=== PATIENT | male | born 1975 | race Caucasian/White ===

== ENCOUNTER 2021-03-24 17:32 | Inpatient (IN) | payer OTHER ==
[~2021-03-24] VITALS: Ht 182.9 cm; Wt 97.7 kg
[2021-03-24 17:32] VITALS: BP 115/79
[~2021-03-24 17:32] MED LIST: HYDROCODONE-ACE15 ML PO; NOHOMEMEDICATIONS
[2021-03-24 18:20] LABS: HEMATOCRIT 31.2 % (42.0-52.0); HEMOGLOBIN 10.5 gm/dL (14.0-18.0); MCH 29.5 pg (26.0-34.0); MCHC 33.7 g/dL (28.0-37.0); MCV 87.3 fL (80.0-100.0); RBC 3.57 mil/uL (4.50-6.00); RDW 14.9 % (10.5-14.5); WBC 14.1 thou/uL (4.0-11.0)
[2021-03-24 18:23] LABS: CREATININE 1.4 mg/dL (0.7-1.3); POTASSIUM 3.6 mmol/L (3.5-5.1)
[2021-03-24 18:30] LABS: TOTAL BILIRUBIN 0.4 mg/dL (0.2-1.0); TOTAL PROTEIN 6.3 g/dL (6.4-8.2)
[2021-03-24 22:17] VITALS: BP 118/83
[2021-03-24 23:20] VITALS: BP 110/77
[2021-03-25 05:43] LABS: HEMATOCRIT 32.8 % (42.0-52.0); HEMOGLOBIN 10.9 gm/dL (14.0-18.0); MCH 29.3 pg (26.0-34.0); MCHC 33.2 g/dL (28.0-37.0); MCV 88.1 fL (80.0-100.0); RBC 3.72 mil/uL (4.50-6.00); RDW 15.1 % (10.5-14.5); WBC 12.7 thou/uL (4.0-11.0)
[2021-03-25 05:53] LABS: CALCIUM 7.9 mg/dL (8.5-10.1); CREATININE 1.3 mg/dL (0.7-1.3); INR 1.3; POTASSIUM 3.7 mmol/L (3.5-5.1)
[2021-03-25 07:50] VITALS: BP 131/73
[2021-03-25 10:03] LABS: URINE BILIRUBIN NEGATIVE (Negative); URINE BLOOD NEGATIVE (Negative); URINE CLARITY CLEAR; URINE COLOR YELLOW; URINE GLUCOSE-RANDOM* NEGATIVE (Negative); URINE KETONES NEGATIVE (Negative); URINE LEUKOCYTES-REFLEX NEGATIVE (Negative); URINE NITRITE-REFLEX NEGATIVE (Negative); URINE PROTEIN (DIPSTICK) NEGATIVE (Negative); URINE UROBILINOGEN 0.2 E.U./dl (0.2-1.0)
--- NOTE | 2021-03-25 10:56 | 2DMMODE ---
[facility] [place] [address] 2 D/M-MODE ECHOCARDIOGRAM Name: JULEE VELEZ Room #: 456-P ADM IN M.R.#: [id number] Admission: 03/24/21 Attend Phys: Sawyer Burciaga MD Discharge: Date of : 79 Report #: [id number] THIS REPORT FOR: cc: TERRI - Mary family physician/PCP TERRI - Mary family physician/PCP Brent Malhotra MD [facility] ~ APPROVED REPORT Study performed: 03/25/2021 10:07:51 EXAM: Comprehensive 2D, Doppler, and color-flow Echocardiogram Patient Location: Bedside Room #: 456 Status: routine BSA: 2.20 HR: 99 bpm BP: 131/73 mmHg Rhythm: Tachycardia Other Information Study Quality: Adequate Indications Elevated BNP. ? CHF. 2D Dimensions RVDd: 61.66 mm IVSd: 10.70 (7-11mm) LVOT Diam: 20.56 (18-24mm) LVDd: 32.67 mm PWd: 11.05 (7-11mm) Ascending Ao: 33.32 (22-36mm) LVDs: 23.96 (25-40mm) Left Atrium: 34.69 (27-40mm) Aortic Root: 33.33 mm Volumes Left Atrial Volume (Systole) Single Plane 4CH: 23.56 mL Aortic Valve AoV Peak Ender.: 0.95 m/s AO Peak Gr.: 3.60 mmHg LVOT Max P.40 mmHg LVOT Max V: 0.77 m/s LUZ MARIA Vmax: 2.71 cm2 [facility] [address] [address] 2 D/M-MODE ECHOCARDIOGRAM Name: AGUSTINJULEE G Room #: 456-P [facility] IN .R.#: [id number] Admission: 03/24/21 Attend Phys: Sawyer Burciaga MD Discharge: Date of : 79 Report #: [id number] Mitral Valve E/A Ratio: 0.7 MV Decel. Time: 177.39 ms MV E Max Ender.: 0.43 m/s MV A Ender.: 0.65 m/s MV PHT: 51.44 ms IVRT: 78.43 ms Pulmonary Valve PV Peak Ender.: 0.65 m/s PV Peak Gr.: 1.67 mmHg Tricuspid Valve TR Peak Ender.: 4.43 m/s RAP Estimate: 15.00 mmHg TR Peak Gr.: 79.00 mmHg PA Pressure: 94.00 mmHg Left Ventricle The left ventricle is normal size. Flattened septum consistent with right ventricular pressure overload. There is normal left ventricular wall thickness. Left ventricular systolic function is normal. LVEF is 55%. Mild diastolic dysfunction is present (impaired relaxation pattern). Right Ventricle Right ventricle is severely dilated. Right ventricle is severely hypokinetic. Atria The left atrium size is normal. Right atrium is severely dilated. Aortic Valve The aortic valve is normal in structure. No aortic regurgitation is present. There is no aortic valvular stenosis. Mitral Valve The mitral valve is normal in structure. Trace mitral regurgitation. No evidence of mitral valve stenosis. Tricuspid Valve The tricuspid valve is normal in structure. Moderate tricuspid regurgitation. Severe pulmonary hypertension. Estimated PAP is 90mmHg. Pulmonic Valve The pulmonary valve is normal in structure. Mild pulmonic [facility] [address] [place] [address] 2 D/M-MODE ECHOCARDIOGRAM Name: AGUSTINJULEE Mauro Room #: 456-P [facility] IN [facility].#: [id number] Admission: 03/24/21 Attend Phys: Sawyer Burciaga MD Discharge: Date of : 79 Report #: [id number] regurgitation. Great Vessels The aortic root is normal in size. The ascending aorta is normal in size. IVC is dilated and collapses <50% with inspiration. Pericardium Trivial posterior pericardial effusion. <Conclusion> Normal left ventricular size/wall thickness Ejection fraction 55% Grade 1 diastolic dysfunction Severely dilated right ventricle/severe hypokineses Normal left atrial size Severe right atrial enlargement Color-flow Doppler study was performed of the aortic/mitral/tricuspid/pulmonary valve Normal aortic/mitral valve structure and function Moderate tricuspid valve insufficiency Severe pulmonary hypertension PA systolic pressure estimated 90 mmHg IVC moderately dilated/minimally responsive to respiration Trivial posterior pericardial effusion Normal aortic root size. <ELECTRONICALLY SIGNED> By: Brent Malhotra MD, FAC 03/25/21 1055 1055 Brent Malhotra MD, [facility] /INF
--- NOTE | 2021-03-25 12:41 | NUR ---
RN agrees with SALES PERFORMANCE ANALYST assessment.
--- NOTE | 2021-03-25 14:16 | NUR ---
PT ADMITTED RELATED TO ABD PAIN. CM REVIEWED CHART AND SPOKE WITH CARE TEAM. CM MET WITH PT AT BEDSIDE THIS DAY. PT APPEARED TO BE A&O X4. CM ROLE INTRODUCED. PT INDICATED HE HAD BEEN STAYING AT [facility] PRIOR TO [place] [facility] HE HAD DENISE STAYING WITH A FRIEND CLIENT MANAGER [employer] HE NEEDED SOME MORE HELP. PT INDICATED THAT HE HAD BEEN INDEPENDENT WITH GAIT AND ADLS PT HOSPITALIZATION. PT IS PATIENT PAY BUT INDICATED THAT HE HAD MEDICAID IN THE PAST AND HAS FOOD STAMPS NOW. PT INDICATED THAT HE PLANS TO RETURN TO THE [facility] ONCE MEDICALLY STABLE. PT INDICATED THAT HIS MOTHER WILL HELP HIM FILL PERSCRIPTIONS UPON DC. CM FOLLOWING REGARDING DC PLANNING.
--- NOTE | 2021-03-25 15:28 | NUR ---
ASSUMED CARE OF PATIENT AT SHIFT CHANGE; 0700. ASSESSMENT CHARTED. MEDICATIONS ADMINISTERED PER EMAR. VSS. PATIENT IS A&OX4 AND CALLS OUT NEEDED. PATIENT IS ON STRICT NPO PER DR. MORENO FOR BOWEL REST. PATIENT C/O CONSTANT LOWER ABDOMINAL PAIN AND REQUESTS PAIN MEDS AT LEAST EVERY 30 MINS. MORHINE WAS DISCONTINUED; PATIENT NOW ON HYDROMORPHONE PER HOSPITALIST BUT STILL VOICING CONSTANT PAIN. PATIENT WENT FOR A PARACENTESIS THIS DAY; REPORTED 2L DRAINED FOR ACITES. PUNCTURE SITE C/D/I. PICC LINE BEING PLACED NOW AND TO BE CONFIRMED BY XRAY. LABS TO BE DRAWN AFTER PICC PLACEMENT CONFIRMATION. PATIENT DID NOT AMBULATE THIS SHIFT AND STATES L ANKLE TOO PAINFUL. PATIENT DID REPORT ANKLE INJURY "5 DAYS BEFORE APPENDECTOMY"; SLIGHT SWELLING NOTED. AWAITING NEW ORDERS ON PATIENT. FALL PRECAUTIONS IN PLACE. WILL CONTINUE TO MONITOR AND FOLLOW PLAN OF CARE
[2021-03-25 15:44] LABS: BF NUCLEATED CELLS 11708 /mm3; BF RBC 5003 /mm3
[2021-03-25 15:45] LABS: CLARITY HAZY; COLOR YELLOW; TOTAL VOLUME 65 mL
--- NOTE | 2021-03-25 16:33 | NUR ---
VAT CONSULTED FOR PICC LINE. DISCUSSED BENEFITS AND RISK OF PICC WITH PT, VERBALIZED UNDERSTANDING. PT'S LABS,MEDS,HX,ORDER AND CONSENT VERIFIED. SERJIO BRACHIAL WAS WIDELY PATENTWITH USG. 4FR POWER SL PICC TRIMMED TO 48CM INSERTED TO 3CM EXTERNAL. PT TOLERATED WELL. STAT CXR ORDERED
[2021-03-25 16:35] LABS: BF NEUTROPHILS 92 %; SOURCE ABDOMINAL
[2021-03-25 16:36] LABS: BF MACROPHAGE 6 %
--- NOTE | 2021-03-25 16:46 | NUR ---
CXR CONFIRMED PICC PLACEMENT. PICC RELEASED FOR IMMEDIATE USE PER PROTOCOL TO BERHANE WILLIAM
[2021-03-25 19:54] VITALS: BP 131/90
--- NOTE | 2021-03-26 02:46 | NUR ---
ASSUMED CARE OF PT AT 1900. PT IS A/O X4 AND IS UP WITH SBA TO THE BR. ROOM AIR. SR/ST ON THE MONITOR. VSS. AFEBRILE. C/O SEVERE PAIN TO ABDOMEN. PRN PAIN MEDICATION GIVEN DIRECTED. USES A URINAL AT THE BEDSIDE AND ON OCCASION REQUESTS TO WALK TO THE TOILET. HAD ON MEDIUM SOFT UNFORMED BM THIS NOC. PT STATED THIS WAS HIS FIRST STOOL SINCE PREVIOUS TO HIS APPENDECTOMY. PARTIAL RELIEF TO ABDOMEN AFTER. FALL PRECAUTIONS IN PLACE, CALL LIGHT IS WITHIN REACH. WILL CONTINUE TO MONITOR.
[2021-03-26 04:59] LABS: HEMATOCRIT 35.3 % (42.0-52.0); HEMOGLOBIN 11.4 gm/dL (14.0-18.0); MCH 29.2 pg (26.0-34.0); MCHC 32.3 g/dL (28.0-37.0); MCV 90.6 fL (80.0-100.0); RBC 3.9 mil/uL (4.50-6.00); RDW 15.2 % (10.5-14.5); WBC 16.3 thou/uL (4.0-11.0)
[2021-03-26 05:39] LABS: CALCIUM 7.8 mg/dL (8.5-10.1); CREATININE 1.3 mg/dL (0.7-1.3); POTASSIUM 3.9 mmol/L (3.5-5.1)
[2021-03-26 09:30] VITALS: BP 132/100
[2021-03-26 10:07] LABS: BODY FLUID ALBUMIN 1.9 g/dL (Not Estab.); BODY FLUID GLUCOSE 81 mg/dL (()); BODY FLUID LDH 217 IU/L (()); BODY FLUID PROTEIN 3.8 g/dL (())
[2021-03-26 12:55] LABS: SOURCE ABDOMINAL
--- NOTE | 2021-03-26 13:15 | NUR ---
Assumed pt care at 7am.Pt in bed c/o wet bed related missing urinal. Assessment completed.Assisted pt to bathroom .Pt took shower byself and bed chnaged done by electrician crane maintenance.Dr Burciaga here,order noted.Pt c/o abdominal pain rated 8/10. Dilaudid ivp given with relief.Pt appeared to be needy and anxious. Emotional support given. Pt apologized for calling out frequently. Clear liq tray given and well tolerated.Pt in bed resting at present.Will continue to monitor.
--- NOTE | 2021-03-26 15:19 | NUR ---
PT HAD PARACENTESIS YESTERDAY. PT IS EXPRESSING DIFFICULTY WITH MOBILITY AND ADLS TO STAFF THIS AFTERNOON. PT AN OT ORDERED FOR CHEY SO DC IS LIKELY ANTICIPATED FOR TOMORROW. CM FOLLOWING REGARDING DC PLANNING.
[2021-03-26 15:35] VITALS: BP 124/89
[2021-03-26 19:25] VITALS: BP 124/96
[2021-03-27 00:55] VITALS: BP 132/93
--- NOTE | 2021-03-27 04:15 | NUR ---
Abd pain controlled this shift.patient had a shower. patient had bm x2. patient needs minimum assistance with adl, bed mobility, transfer and toileting. patient on clear liquids. patient calls appropriately. fall preacaution in place. patient in bed asleep at this time breathing regular and unlaboured.
[2021-03-27 05:25] VITALS: BP 118/86
[2021-03-27 07:30] VITALS: BP 124/85
--- NOTE | 2021-03-27 12:28 | NUR ---
OT ASSESSED PT AN INDICATED THAT PT WOULD BE SAFE TO RETURN TO [facility] UPON DC WITH FRIEND AND FAMILY SUPPORT. CARE TEAM INDICATED THAT PT MAY BE MEDICALLY STABLE TO DC TOMORROW.
--- NOTE | 2021-03-27 12:47 | NUR ---
ASSUMED PT CARE AROUND 0710. PT ALERT X ORIENTED X4. ON ROOM AIR. 1 PERSON ASST TO BATHROOM. IV PICCLINE RT UA/ NS RUNNING AT 126MLS/HR. PT X OT WORKED WITH THE PATIENT. PT SITTING IN THE CHAIR. HAD A BM TODAY MORNING. PAIN PARTIALLY CONTROLLED BY PAIN MEDICINE. FALL PRECAUTION IN PLACE. SLIGHT EDEMA OF BOTH FEET AND PT SAID IT IS NORMAL FOR HIM. CALL LIGHT WITHIN REACH. WILL CALL APPROPRIATELY. WILL CONT TO MONITOR.
[2021-03-27 15:25] VITALS: BP 119/87
[2021-03-27 20:59] VITALS: BP 105/74
--- NOTE | 2021-03-28 07:46 | NUR ---
Pt. rested quietly at intervals during the night when checked on during frequent rounds. Ivp pain med given for c/o abdominal pain (see emar) with some relief noted. Up to the toilet with stand by assist and he did have a bowel movement.
--- NOTE | 2021-03-28 08:00 | NUR ---
PT SITTING UP IN ROSALIND-CHAIR IN A DARK ROOM. PT WANTING PAIN MEDICATION DUE TO FEELING A PRESSURE TO LOWER ABD OF 7 ON 1-10 SCALE. ADM DILAUDID 0.8MG IV IN PICC LINE TO RT ARM. PT STATED HE WAS STUCK ON LEFT ARM AND HE IS A HARD STICK. PT STATED HE HAD X2 BM THAT WAS SOFT. PT STATED THEY FORGOT HIS MEAL TRAY YESTERDAY AND WANTED TO MAKE SURE HE GOT BREAKFAST. PT STATED HE WOULD NOT BE OPPOSED TO GETTING ANOTHER PARACENTESIS DUE TO THE SWELLING. PT HAS JUICE AT BEDSIDE AND JUST WANTED PITCHER OF ICE, ENCOURAGED PT TO DRINK WATER ALSO.
[2021-03-28 08:41] VITALS: BP 124/74
[2021-03-28] MEDS ORDERED: NORCO5 PO (11:35)
--- NOTE | 2021-03-28 11:49 | NUR ---
PT STATED PAIN LEVEL IS 7 ON 1-10 SCALE. PT STATED HE GETS TO GO HOME TODAY AFTER LUNCH. ADM DILAUDID 0.8MG IV FOR PAIN. PT WANTS A WARM BLANKET AND TAKE OFF OTHER BLANKETS. PT HAD ABOUT 4 REG. BLANKETS ON.
--- NOTE | 2021-03-28 12:02 | NUR ---
NOTIFIED DR. BOWLING DUE TO NEEDING TO SEE HIS ECHO REPORT AND ALSO TO D/C PICC LINE. HE STATED HE PRINTED OFF SCRIPT FOR PAIN MED. OBTAINED ORDER FOR PO PAIN MED FOR IN HOUSE USE.
--- NOTE | 2021-03-28 12:49 | NUR ---
DR. BOWLING GIVEN THIS TAILOR HELPER A SCRIPT FOR HYDROCODONE. PT REFUSED DUE TO BEING ALLERGIC TO CODEINE. SHREDDED SCRIPTS AND ASKED DR. BOWLING ABOUT A DIFFERENT MEDICATION. RESPONSE WAS THERE WAS NOT ANOTHER OPTION. ASKED PT ABOUT TRAMADOL, HE SAID HE JUST WANTS SOMETHING STRONG.
[2021-03-28 13:59] VITALS: BP 124/74
[2021-03-28 14:02] VITALS: BP 124/74
--- NOTE | 2021-03-28 14:12 | NUR ---
CARE TEAM INDICATED THAT PT IS MEDICALLY STABLE TO DC HOME THIS DAY. CM MET WITH PT AND PROVIDED [facility] PACKET FOR CARES UPON DC. PT INDICATED THAT HIS MOTHER WOULD TAKE HIM TO THE [facility] SUITES OFF [facility]. PT IS ABLE TO FILL MEDICAITIONS UPON DC ALTHOUGH HE IS ANNOYED ABOUT THE PERSCRIBED PAIN MED. CM NOTIFIED NURSE WHO SPOKE WITH PHYSICAIN. NO OTHER CM INTERVENTION INDICATED. CASE CLOSED.
--- NOTE | 2021-03-28 14:34 | NUR ---
PT STATED HE WOULD LIKE TO GET ANOTHER DILAUDID DUE TO GOING HOME. PT STATED HIS MOTHER IS COMING TO GET HIM. HE WANTED TO KEEP PICC LINE AND HIS SISTER IS AN GUN FITTER AND SHE COULD PUSH THE DILAUDID. TOLD PT THAT HE DOESN'T HAVE A SCRIPT FOR IV DILAUDID AND HE WASN'T GETTING ANY ADDITIONAL ABX. ADM DILAUDID 0.8MG IV FOR PAIN TO LOWER ABD.
--- NOTE | 2021-03-28 15:00 | NUR ---
D/C PICC LINE AT THIS TIME TO RT ARM. HELD PRESSURE TO SITE FOR 5 MIN AND APPLIED GAUZE AND TEGADERM.
--- NOTE | 2021-03-28 15:56 | NUR ---
PT READY TO DISCHARGE PT LEAVING VIA W/C WITH PERSONAL WALKER ALSO. PT LEFT WITH MOTHER. PT HAVING HARD TIME ZIPPING UP PANTS DUE TO THE FLUID RETENTION. PT DID HAVE HEAVING BREATHING WHEN GETTING DRESSED.
== END 2021-03-28 16:00 | disposition home or self-care (01) | DRG 872 ==
LOC: ER 17:32 → 4W 22:00 → EROBS 22:00 → 4W 22:43
PROVIDERS: Nurse Practitioner Family; Student in an Organized Health Care Education/Training Program; Surgery; ADMIT Hospitalist; ATTEND Hospitalist
PROC: 02HV33Z Insertion of Infusion Device into Superior Vena Cava, Percutaneous Approach (ICD-10-PCS; principal; 2021-03-25)
PROC: 0W9G3ZZ Drainage of Peritoneal Cavity, Percutaneous Approach (ICD-10-PCS; principal; 2021-03-25)
DX: A41.9 Sepsis, unspecified organism (principal); K63.0 Abscess of intestine; K56.609 Unspecified intestinal obstruction, unspecified as to partial versus complete obstruction; K56.7 Ileus, unspecified; F12.90 Cannabis use, unspecified, uncomplicated; I27.20 Pulmonary hypertension, unspecified; N30.90 Cystitis, unspecified without hematuria; Z90.49 Acquired absence of other specified parts of digestive tract; Z86.19 Personal history of other infectious and parasitic diseases; Z88.6 Allergy status to analgesic agent; Z91.041 Radiographic dye allergy status; Z91.013 Allergy to seafood
CPT/HCPCS: 10047; 27000

== ENCOUNTER 2021-03-28 21:36 | Inpatient (IN) | payer OTHER ==
[~2021-03-28] VITALS: Ht 182.9 cm; Wt 98.0 kg
[~2021-03-28 21:36] MED LIST changes: +NORCO5 PO
[2021-03-28 21:40] VITALS: BP 123/86
[2021-03-28 22:28] LABS: ABSOLUTE NEUTROPHILS 7.3 thou/uL (1.4-8.2); BASOPHILS 0.6 % (0.0-2.0); EOSINOPHILS 1.4 % (0.0-3.0); HEMATOCRIT 32.8 % (42.0-52.0); HEMOGLOBIN 11.7 gm/dL (14.0-18.0); MCH 31.3 pg (26.0-34.0); MCHC 35.6 g/dL (28.0-37.0); MCV 87.8 fL (80.0-100.0); MONOCYTES 6.6 % (1.0-8.0); PLATELET COUNT 608 thou/uL (150-400); POLYS 78.4 % (36.0-66.0); RBC 3.73 mil/uL (4.50-6.00); RDW 15.3 % (10.5-14.5); WBC 9.2 thou/uL (4.0-11.0)
[2021-03-28 22:33] LABS: CALCIUM 7.7 mg/dL (8.5-10.1); CREATININE 1.1 mg/dL (0.7-1.3); POTASSIUM 3.7 mmol/L (3.5-5.1)
[2021-03-28 22:35] LABS: INR 1.36; PROTIME 14.6 Seconds (10.5-12.1)
[2021-03-28 22:42] LABS: ALBUMIN 1.9 g/dL (3.4-5.0); TOTAL BILIRUBIN 0.4 mg/dL (0.2-1.0); TOTAL PROTEIN 6.3 g/dL (6.4-8.2); TROPONIN-I 0.08 ng/mL (<0.06)
[2021-03-29 02:31] VITALS: BP 110/74
[2021-03-29 02:48] VITALS: BP 113/73
[2021-03-29 03:00] VITALS: BP 126/67
[2021-03-29 05:07] LABS: URINE BILIRUBIN NEGATIVE (Negative); URINE BLOOD TRACE (Negative); URINE CLARITY CLEAR; URINE COLOR YELLOW; URINE GLUCOSE-RANDOM* NEGATIVE (Negative); URINE KETONES NEGATIVE (Negative); URINE LEUKOCYTES-REFLEX NEGATIVE (Negative); URINE NITRITE-REFLEX NEGATIVE (Negative); URINE PROTEIN (DIPSTICK) NEGATIVE (Negative); URINE SPECIFIC GRAVITY <= 1.005 (1.005-1.035); URINE UROBILINOGEN 0.2 E.U./dl (0.2-1.0)
--- NOTE | 2021-03-29 05:50 | NUR ---
ASSUMED CARE OF PATIENT FROM ER. ADMISSION COMPLETE. REPEAT TROPONIN LAB SENT. UA SENT. PAIN MEDICATION GIVEN ORDERED. PATIENT DIURESING WELL. POC GOALS ESTABLISHED.
--- NOTE | 2021-03-29 06:58 | EKG ---
[place] [address] [facility] [place] [address] ELECTROCARDIOGRAM REPORT Name: JULEE VELEZ Room #: 456-P [facility] IN .R.#: [id number] Admission: 03/29/21 Attend Phys: Rinku Henry MD Discharge: Date of : 79 Report #: [id number] [facility] ED Test Date: 2021-03-28 Test Time: 21:50:43 Pat Name: JULEE VELEZ Department: Room: 456 Gender: M Bookkeeping Clerk: oni : 1975 Requested By: Leonie Moya Order Number: [id number] MD: Brent Malhotra Measurements Intervals Marydel Rate: 110 P: 58 AR: 179 QRS: 114 QRSD: 95 T: -29 QT: 348 QTc: 471 Interpretive Statements Sinus tachycardia Left atrial enlargement Consider RVH w/ secondary repol abnormality No previous ECG available for comparison Electronically Signed On 03-29-2021 6:58:08 CDT by Brent Malhotra [email or web address] <ELECTRONICALLY SIGNED> By: Brent Malhotra MD, [facility] 03/29/21 0658 2150 2150 Brent Malhotra MD, FACC /EPI
[2021-03-29 07:55] VITALS: BP 113/73
--- NOTE | 2021-03-29 15:59 | NUR ---
PT READMITTED RELATED TO ANASARCA. PT DISCHARGED HOME YESTERDAY AFTERNOON. H&P INDICATED THAT PT HAD GONE TO [facility] TO FIND A LIFT CHAIR AND PT INDICATED HE OVER DID IT AND IS NOW ALL SWOLLEN. CM MET WITH PT AT BEDSIDE THIS DAY. PT INDICATED HE PLANS TO RETURN TO THE [facility] SUITES OFF [facility] ONCE MEDICALLY STABLE. PT IS ABLE TO FILL MEDS UPON DC. [employer] HAD COMPLETE A MEDICAID APPLICATION DURING LAST ADMISSION BUT PT IS PATIENT PAY. PT HAD BEEN GIVEN [employer] [facility] PACKET PREVIOUSLY. CM FOLLOWING SHOULD ANY DC NEEDS ARISE.
[2021-03-29 16:10] VITALS: BP 105/78
--- NOTE | 2021-03-29 17:47 | NUR ---
ASSUMED PT CARE THIS AM. PT IS ALERT & ORIENTED X4. PT HAS IV SITE ON L EJ SALINE LOCKED. PT UP WITH ASSIST X1 AND USES URINAL. PT HAS TELE MONITOR ON. PT C/O OF PAIN AND GIVEN PAIN MEDICATION DURING THE SHIFT. PT HAS EDEMA ON BILATERAL LOWER EXTREMITIES AND SCROTUM +2. LAST BM WAS YESTERDAY. PT TOLERATED DIET WELL. PT ON THE CHAIR. CALL LIGHT WITHIN REACH. WILL CONTINUE TO MONITOR PT AND ACCURATE I&O. FOLLOW POC.
[2021-03-29 21:40] VITALS: BP 108/78
[2021-03-30 05:06] LABS: CALCIUM 7.7 mg/dL (8.5-10.1); CREATININE 1.1 mg/dL (0.7-1.3); POTASSIUM 3.3 mmol/L (3.5-5.1)
--- NOTE | 2021-03-30 05:43 | NUR ---
Pt. c/o scrotal pain and unable to sleep. Maribeth BUSTAMANTE called and new order for po benadryl given (see cpoe). Hydrocodone given for scrotal pain which was helpful, but not for a long duration. He also c/o benadryl not helping him sleep. Maribeth BUSTAMANTE called (see new orders). Soon after meds given pt. was resting quietly up in the recliner chair. Pt. can get very anxious at times. Scrotom continues to be swollen.
[2021-03-30 07:30] VITALS: BP 113/73
--- NOTE | 2021-03-30 11:40 | NUR ---
ASSUMED PT CARE AROUND 0715. PT ALERT X ORIENTED X 4. ON ROOM AIR. STAND BY ASST. VSS. ON TELE MONITOR. PAIN PARTIALLY CONTROLLED BY PAIN MEDS. IV LEFT EJ/SALINE LOCKED. BED IN LOW POSITION, CALL LIGHT IN REACH, URINALS AT BEDSIDE, WILL CALL APPROPRIATELY. WILL CONTINUE TO MONITOR.
[2021-03-30 20:25] VITALS: BP 116/83
--- NOTE | 2021-03-30 23:38 | NUR ---
ASSUMED CARE OF PT AT 1900. PT IS A/O X4 AND IS UP AD MAGDALENE. ROOM AIR. SR ON THE MONITOR. VSS. AFEBRILE. LBM TONIGHT, VOIDS PER URINAL AT THE BEDSIDE. C/O PAIN TO SCROTAL EDEMA. PRN PAIN MEDICATION GIVEN DIRECTED. C/O INSOMNIA. INSTRUCTOR DECORATING NOTIFIED. ORDERS GIVEN FOR PRN SLEEP MEDICATION. AT THIS TIME PT IS LYING IN HIS BED WITH HOB AND FEET ELEVATED APPEARING TO BE LOOKING AT THIS PHONE. REPORTED OFF TO ONCOMING NURSE.
[2021-03-31 02:45] VITALS: BP 129/96
--- NOTE | 2021-03-31 04:06 | NUR ---
PT ALERT AND ORIENTED X4. VSS AFEBRILE. UP TO BR WITH STANDBY ASSISTANCE. PT C/O SLEEPING PILL NOT WORKING AROUND O4OO. EXPLAINED TO PT WE CAN NOT GFIVE OUT SLEEPING PILLS SO LATE IN THE AM PER POLICY. PAIIN PILLS CONTOLLNG PAIN ADEQUATELY. NO S/S DISTRESS. NSR ON THE MONITOR.
[2021-03-31 05:23] LABS: HEMATOCRIT 33.9 % (42.0-52.0); HEMOGLOBIN 11.2 gm/dL (14.0-18.0); RBC 3.86 mil/uL (4.50-6.00); WBC 6.6 thou/uL (4.0-11.0)
[2021-03-31 05:25] LABS: CALCIUM 8.2 mg/dL (8.5-10.1); POTASSIUM 3.8 mmol/L (3.5-5.1)
[2021-03-31 07:45] VITALS: BP 122/83
[2021-03-31] MEDS ORDERED: LASIX 40 MG TAB40 M2 PO (10:59)
[2021-03-31 12:13] VITALS: BP 122/83
--- NOTE | 2021-03-31 12:23 | NUR ---
ASSUMED PT CARE AROUND 0700. PT ALERT X ORIENTED X4. ON ROOM AIR. UP AD MAGDALENE.REFUSES SCDS. SLIGHT SWELLING OF FEET, +1 EDEMA. IV RT FA SALINE LOCKED.ON TELE MONITORING WITH SINUS RYTHM. USES URINALS AT BEDSIDE. FALL PRECAUTION IN PLACE . CALL LIGHT IN REACH. WILL CALL APPROPRIATELY. WILL CONTINUE TO MONITOR. POSSIBLE DC TODAY.
== END 2021-03-31 13:03 | disposition home or self-care (01) | DRG 292 ==
LOC: ER 21:36 → EROBS 03-29 02:05 → 4W 03-29 02:05
PROVIDERS: Emergency Medicine; Internal Medicine; Nurse Practitioner Family; Physician Assistant; ADMIT Hospitalist; ATTEND Hospitalist
DX: I50.33 Acute on chronic diastolic (congestive) heart failure (principal); R18.8 Other ascites; K56.7 Ileus, unspecified; I27.20 Pulmonary hypertension, unspecified; N50.89 Other specified disorders of the male genital organs; Z90.49 Acquired absence of other specified parts of digestive tract; Z79.899 Other long term (current) drug therapy; Z88.5 Allergy status to narcotic agent; Z91.013 Allergy to seafood; Z91.09 Other allergy status, other than to drugs and biological substances
CPT/HCPCS: 10045